=== PATIENT | female | born 1990 | race Caucasian/White ===

== ENCOUNTER 2023-12-20 18:29 | Emergency (ER) | payer MEDICAID ==
[~2023-12-20] VITALS: Ht 160 cm; Wt 88.0 kg
[2023-12-20] MEDS ORDERED: SULF1TAB49 PO (20:09)
[2023-12-20 20:21] VITALS: BP 130/70; PULSE 88; RESP 18; TEMP 97.7; O2SAT 99
== END 2023-12-20 20:22 | disposition home or self-care (01) ==
LOC: ER 18:30
DX: L03.012 Cellulitis of left finger (principal); F17.200 Nicotine dependence, unspecified, uncomplicated; Z88.5 Allergy status to narcotic agent
CPT/HCPCS: 99283

== ENCOUNTER 2023-12-26 00:09 | Emergency (ER) | payer MEDICAID ==
[~2023-12-26] VITALS: Ht 160 cm; Wt 87.5 kg
[~2023-12-26 00:09] MED LIST: SULF1TAB49 PO
[2023-12-26] MEDS: LIDOcaine 1% W/epiNEPHrine 1:100,000 20ml vial IJ ONE (01:34)
[2023-12-26] MEDS ORDERED: CEPH-585 PO (01:42)
[2023-12-26 02:03] VITALS: BP 128/88; PULSE 94; RESP 14; TEMP 98; O2SAT 96
[2023-12-26] MEDS: cephalexin 250mg capsule PO ONE (02:04)
== END 2023-12-26 02:08 | disposition home or self-care (01) ==
LOC: ER 00:09
DX: L02.512 Cutaneous abscess of left hand (principal); Z88.5 Allergy status to narcotic agent; Z79.899 Other long term (current) drug therapy
CPT/HCPCS: 99283; A6266

== ENCOUNTER 2023-12-30 19:35 | Emergency (ER) | payer MEDICAID ==
[~2023-12-30] VITALS: Ht 160 cm; Wt 87.6 kg
[~2023-12-30 19:35] MED LIST changes: +CEPH-585 PO
[2023-12-30 19:40] VITALS: BP 132/88; PULSE 100; RESP 14; O2SAT 100
[2023-12-30 20:29] VITALS: TEMP 98.3
== END 2023-12-30 20:33 | disposition home or self-care (01) ==
LOC: ER 19:36
DX: L02.512 Cutaneous abscess of left hand (principal); Z88.5 Allergy status to narcotic agent; Z79.899 Other long term (current) drug therapy
CPT/HCPCS: 99281